=== PATIENT | male | born 1980 | race African-American/Black ===

== ENCOUNTER 2019-02-12 01:30 | Emergency (ER) | payer OTHER ==
[~2019-02-12] VITALS: Ht 165.1 cm; Wt 102.1 kg
--- NOTE | 2019-02-12 01:39 | ED.ADGEN ---
Adult General Chief Complaint Chief Complaint ". I fell coming out of the shower.. and hit my face really hard.. I got this laceration inside my lower lip.. and got this headache... "..." I'll Be at [facility] for the next 8 months. However I ve already served 13 and l/2 years." HPI HPI Patient is a 38 year old male [facility] inmate who presents with above hx and contusion, l cm laceration inside of lower lip. Pt. denies loss of consciousness. Is up-to-date with vaccinations. Has good bite. Patient has no other reported injuries. No recent travel. No specific ill contacts. No history immunosuppression. Review of Systems Review of Systems Constitutional: Denies fever or chills [] Eyes: Denies change in visual acuity, redness, or eye pain [] HENT: Complaints of facial injury and lip laceration Respiratory: Denies cough or shortness of breath [] Cardiovascular: No additional information not addressed in HPI [] GI: Denies abdominal pain, nausea, vomiting, bloody stools or diarrhea [] : Denies dysuria or hematuria [] Musculoskeletal: Denies back pain or joint pain [] Integument: Denies rash or skin lesions [] Neurologic:Complaints of headache,. Denies focal weakness or sensory changes [] Endocrine: Denies polyuria or polydipsia [] All other systems were reviewed and found to be within normal limits, except as documented in this note. Family History Family History Noncontributory Current Medications Current Medications Current Medications Medications (Trade) Dose Ordered Sig/[place] Start Time Stop Time Status Last Admin Dose Admin Acetaminophen (Tylenol) 1,000 mg 1X ONCE 02/12/19 02:15 02/12/19 03:12 DC 02/12/19 02:15 1,000 MG Diphenhydramine HCl (Benadryl Oral Elixir) 25 mg 1X ONCE 02/12/19 04:15 02/12/19 04:16 UNV 02/12/19 04:29 25 MG Hydrocodone Bitartrate/ Ibuprofen (Vicoprofen 7.5-200) 1 tab 1X ONCE 02/12/19 04:15 02/12/19 04:16 UNV 02/12/19 04:29 1 TAB Ibuprofen (Motrin) 100 mg 1X ONCE 02/12/19 04:15 02/12/19 04:16 UNV 02/12/19 04:28 100 MG See nursing for home meds Allergies Allergies Allergies Coded Allergies Type Severity Reaction Last Updated Verified No Known Drug Allergies 02/12/19 No No known drug allergies Physical Exam Physical Exam Constitutional: Well developed, well nourished, moderate acute distress, non- toxic appearance. [] HENT: Normocephalic, facial contusion, lower 1 cm laceration inside lower lip, good bite, bilateral external ears normal, oropharynx moist, no oral exudates, nose normal. [] Eyes: PERRLA, EOMI, conjunctiva normal, no discharge. [] Neck: Normal range of motion, no tenderness, supple, no stridor. [] Cardiovascular:Heart rate regular rhythm, no murmur [] Lungs & Thorax: Bilateral breath sounds equal apex on auscultation [] Abdomen: Bowel sounds normal, soft, no tenderness, no masses, no pulsatile masses. [] Skin: Warm, dry, no erythema, no rash. [] Tattoo's Back: No tenderness, no CVA tenderness. [] Extremities: No tenderness, no cyanosis, no clubbing, ROM intact, no edema. [] Neurologic: Alert and oriented X 3, normal motor function, normal sensory function, no focal deficits noted. [] Psychologic: Affect anxious, judgement normal, mood normal. [] Current Patient Data Vital Signs Vital Signs Date Time Temp Pulse Resp B/P (MAP) Pulse Ox O2 Delivery O2 Flow Rate FiO2 02/12/19 04:08 64 16 121/70 (87) 97 Room Air 02/12/19 01:54 97.9 EKG EKG [] Radiology/Procedures Radiology/Procedures [][address] [address] IMAGING REPORT Signed PATIENT: GUSTAVO SMITH ACCOUNT: [id number] : 1980 LOCATION: ER AGE: 38 SEX: M EXAM STATUS: REG ER ORD. PHYSICIAN: NILESH ROLLE MD REASON: Fall today, lower lip laceration, facial pain, headache, neck mari PROCEDURE: CT CERVICAL SPINE WO CONTRAST INDICATION: Trauma COMPARISON: None. TECHNIQUE: Axial CT images obtained through the head, face and cervical spine without intravenous contrast. Coronal and sagittal reformats processed of cervical spine. One or more of the following individualized dose reduction techniques were utilized for this examination: 1. Automated exposure control; 2. Adjustment of the mA and/or kV according to patient size; 3. Use of iterative reconstruction technique. FINDINGS: Head: No intracranial hemorrhage. No midline shift. Basal cisterns patents. Ventricles and sulci are within normal limits. No acute osseous abnormality. Orbits and paranasal sinuses unremarkable. Cervical: No definite acute fracture. No dislocation. No evidence of perivertebral hematoma. Degenerative changes the spine with osteophyte formation. Facial: There is some mild flattening of the nasal bone. Paranasal sinuses are well aerated. No retro-orbital hematoma. IMPRESSION: 1. No acute intracranial hemorrhage. 2. No definite acute fracture or dislocation of the cervical spine. 3. Minimal flattening of the anterior aspect of the nasal bone. There is a large variation in the appearance of the nasal bone at baseline and this could be the patient's baseline appearance however if there was significant trauma to the region and current pain a fracture is possible. Electronically signed by: Anne Lamas MD (02/12/2019 4:06 AM) [facility] DICTATED AND SIGNED BY: ANNE LAMAS MD DATE: 02/12/19405 CC: NILESH ROLLE MD; PCP,NO ~ Course & Med Decision Making Course & Med Decision Making Pertinent Labs and Imaging studies reviewed. (See chart for details) Tylenol and ibuprofen for pain and discomfort. Rinse mouth with warm salt water after eating and 4 times a day. Soft diet. Follow-up primary care. Return if any concerns. [] Final Impression Final Impression 1. Facial Contusion[] 2. Lower Lip Laceration 1 cm 3. Head Injury Dragon Disclaimer Dragon Disclaimer This electronic medical record was generated, in whole or in part, using a voice recognition dictation system. Discharge Summary Visit Information Final Diagnosis Problems Medical Problems: (1) Head injury Status: Acute (2) Lip laceration Status: Acute Brief Hospital Course Allergies Allergies Coded Allergies Type Severity Reaction Last Updated Verified No Known Drug Allergies 02/12/19 No Vital Signs Vital Signs Date Time Temp Pulse Resp B/P (MAP) Pulse Ox O2 Delivery O2 Flow Rate FiO2 02/12/19 04:08 64 16 121/70 (87) 97 Room Air 02/12/19 01:54 97.9 Brief Hospital Course Mr. Smith is a 38 old male inmate from [facility] who presented with facial contusion and lower lip laceration. Discharge Information Condition at Discharge: Improved, Stable Disposition/Orders: D/C to Home Dischare Medications Current Medications Acetaminophen (Tylenol) 1,000 mg 1X ONCE PO Last administered on 02/12/19at 02:15; Admin Dose 1,000 MG; Start 02/12/19 at 02:15; Stop 02/12/19 at 03:12; Status DC Diphenhydramine HCl (Benadryl Oral Elixir) 25 mg 1X ONCE PO Last administered on 02/12/19at 04:29; Admin Dose 25 MG; Start 02/12/19 at 04:15; Stop 02/12/19 at 04:16; Status UNV Ibuprofen (Motrin) 100 mg 1X ONCE PO Last administered on 02/12/19at 04:28; Admin Dose 100 MG; Start 02/12/19 at 04:15; Stop 02/12/19 at 04:16; Status UNV Hydrocodone Bitartrate/ Ibuprofen (Vicoprofen 7.5-200) 1 tab 1X ONCE PO Last administered on 02/12/19at 04:29; Admin Dose 1 TAB; Start 02/12/19 at 04:15; Stop 02/12/19 at 04:16; Status UNV Dragon Disclaimer This chart was dictated in whole or in part using Voice Recognition software in a busy, high-work load, and often noisy Emergency Department environment. It may contain unintended and wholly unrecognized errors or omissions. NILESH ROLLE MD Feb 12, 2019 01:39
[2019-02-12] MEDS ORDERED: ACETAMINOPHEN 500 MG TABLET PO ONE (02:15)
[2019-02-12 04:08] VITALS: BP 121/70
--- NOTE | 2019-02-12 04:09 | RAD ---
INDICATION: Trauma COMPARISON: None. TECHNIQUE: Axial CT images obtained through the head, face and cervical spine without intravenous contrast. Coronal and sagittal reformats processed of cervical spine. One or more of the following individualized dose reduction techniques were utilized for this examination: 1. Automated exposure control; 2. Adjustment of the mA and/or kV according to patient size; 3. Use of iterative reconstruction technique. FINDINGS: Head: No intracranial hemorrhage. No midline shift. Basal cisterns patents. Ventricles and sulci are within normal limits. No acute osseous abnormality. Orbits and paranasal sinuses unremarkable. Cervical: No definite acute fracture. No dislocation. No evidence of perivertebral hematoma. Degenerative changes the spine with osteophyte formation. Facial: There is some mild flattening of the nasal bone. Paranasal sinuses are well aerated. No retro-orbital hematoma. IMPRESSION: 1. No acute intracranial hemorrhage. 2. No definite acute fracture or dislocation of the cervical spine. 3. Minimal flattening of the anterior aspect of the nasal bone. There is a large variation in the appearance of the nasal bone at baseline and this could be the patient's baseline appearance however if there was significant trauma to the region and current pain a fracture is possible. Electronically signed by: Alok Ramirez MD (02/12/2019 4:06 AM) [facility]
[2019-02-12] MEDS ORDERED: IBUPROFEN 100 MG/5 ML ORAL.SUSP. PO ONE (04:15)
[2019-02-12] MEDS ORDERED: diphenhydrAMINE ORAL ELIXIR 12.5 MG/5 ML ML PO ONE (04:15)
[2019-02-12] MEDS ORDERED: HYDROcodon/IBUPROFEN 7.5/200MG 1 TAB TABLET PO ONE (04:15)
[2019-02-12] MEDS ORDERED: IBUPROFEN 100 MG/5 ML ORAL.SUSP. ONE (04:24)
[2019-02-12] MEDS ORDERED: HYDROcodon/IBUPROFEN 7.5/200MG 1 TAB TABLET ONE (04:25)
[2019-02-12] MEDS ORDERED: diphenhydrAMINE ORAL ELIXIR 12.5 MG/5 ML ML ONE (04:25)
== END 2019-02-12 04:38 | disposition home or self-care (01) ==
LOC: ER 01:30
DX: S01.511A Laceration without foreign body of lip, initial encounter (principal); S00.83XA Contusion of other part of head, initial encounter; W18.09XA Striking against other object with subsequent fall, initial encounter; Y93.89 Activity, other specified; Y92.89 Other specified places as the place of occurrence of the external cause; Y99.8 Other external cause status
CPT/HCPCS: 70450; 70486; 72125; 99284-25